=== PATIENT | female | born 1960 | race Caucasian/White ===

== ENCOUNTER 2023-12-08 09:57 | Emergency (ER) | payer OTHER, SELFPAY ==
--- NOTE | ~2023-12-08 | XR_ITS ---
XR knee LT min 4V DATE: 12/08/2023 10:18 INDICATION: Fall forward on the. Proximal anterior knee pain. TECHNIQUE: [employer], AP, bilateral oblique and crosstable lateral views COMPARISON: None FINDINGS: Very prominent distention of the suprapatellar bursa consistent with large knee joint effus ion. There is osteopenia. No fracture or dislocation, periosteal reaction or bone destruction, radiopaque intra-articular loose body or chondrocalcinosis is detected. Knee joint spaces are relatively preserved. IMPRESSION: Large suprapatellar knee joint effusion; no fracture or dislocation is detected Osteopenia Reviewed, dictated and finalized at location A. [employer]
[2023-12-08 10:05] VITALS: BP 158/88; PULSE 108; RESP 16; TEMP 36.7; O2SAT 98
[2023-12-08 10:22] VITALS: BP 158/88; PULSE 108; RESP 16; TEMP 36.7; O2SAT 98
--- NOTE | 2023-12-08 10:38 | ED.LOWEXIN ---
HPI - Extremity Injury (Lower) General Chief Complaint: Extremity Injury, Lower Stated Complaint: Fall Injury/Left Knee History of Present Illness HPI Narrative: Patient presents with left knee swelling. Patient states she tripped over a small fence 2 days ago and has been icing and elevating the knee. Related Data Home Medications Medication Instructions Recorded Confirmed No Home Medications 12/08/23 12/08/23 Allergies Allergy/AdvReac Type Severity Reaction Status Date / Time No Known Allergies Allergy Verified 12/08/23 10:01 Review of Systems Review of Systems: CONSTITUTIONAL: Denies fever, chills, or sweats. EYES: Denies visual changes, redness, or discharge. ENT: Denies rhinorrhea, congestion, sore throat, or otalgia. CARDIOVASCULAR: Denies chest pain, palpitations, or edema. RESPIRATORY: Denies cough or dyspnea. GASTROINTESTINAL: Denies abdominal pain, nausea, vomiting, or diarrhea. GENITOURINARY: Denies dysuria or hematuria. SKIN: Denies rash or itching. MUSCULOSKELETAL: Denies back pain, joint pain, or myalgia. Left knee pain and swelling NEUROLOGIC: Denies headache, numbness, or weakness. PSYCHIATRIC: Denies anxiety or depression. PMFSH Comments At time of signature, agree with nursing past medical, surgical, social and family history. There is no relevant family history pertinent to the presenting complaint Exam Narrative: GENERAL: Well-appearing, well-nourished, and in no acute distress. HEAD: Normocephalic, atraumatic. EYES: PERRLA and EOMI. ENT: Nares clear, no rhinorrhea or epistaxis. Mucous membranes moist. NECK: Supple. CHEST: Clear to auscultation. No respiratory distress. HEART: Regular rate and rhythm. No murmur heard. Normal peripheral pulses. ABDOMEN: Soft, nontender, nondistended, normal active bowel sounds. EXTREMITIES: Normal range of motion. No edema. left knee HIP EXAM - SKIN INTACT. NO BRUISING, REDNESS . slight swelling to left knee. NO INGUINAL MASSES OR LYMPHADENOPATHY. NO INGUINAL TENDERNESS, ANTERIOR OR LATERAL HIP TENDERNESS. NO BUTTOCK OR SI JOINT TENDERNESS. HAS NORMAL FLEXION, EXTENSION, AND ROTATION OF HIP BACK EXAM - NO VERTEBRAL POINT SPECIFIC TENDERNESS OR STEP OFFS. NORMAL ROM OF BACK. NORMAL FLEXION AND EXTENSION OF BACK. NO CVA TENDERNESS. LEG EXAM - NO CALF OR ANKLE SWELLING, DISCOLORATION. NORMAL FOOT SENSATION AND CAP REFILL. NORMAL DP PULSE. SKIN: Warm, dry, no rash. NEURO: No focal deficits. Alert and oriented x3. Leandro Coma Scale Eye Opening: Spontaneous 4 Leandro Coma Scale Motor: Obeys Commands 6 [place] Coma Scale Verbal: Oriented 5 Leandro Coma Scale Total 15 Course Course Level of Care: Express Care Visit Vital Signs Vital signs: Vital Signs Temperature 36.7 C 12/08/23 10:05 Pulse Rate 108 H 12/08/23 10:05 Respiratory Rate 16 12/08/23 10:05 Blood Pressure 158/88 H 12/08/23 10:05 Pulse Oximetry 98 12/08/23 10:05 Oxygen Delivery Room Air 12/08/23 10:05 Temperature 36.7 C 12/08/23 10:22 Pulse Rate 108 H 12/08/23 10:22 Respiratory Rate 16 12/08/23 10:22 Blood Pressure 158/88 H 12/08/23 10:22 Pulse Oximetry 98 12/08/23 10:22 Oxygen Delivery Room Air 12/08/23 10:22 Please EUGENE schedule a followup visit with your personal physician for further evaluation and treatment. Including recheck and discussion of your blood pressure. If your symptoms persist, change or worsen significantly before you can contact your personal physician then please, without delay, go to the emergency department for further evaluation MDM - Extremity Injury (Lower) Imaging Data Radiologist's impression: effusion left knee Discharge Plan Discharge Clinical Impression: Effusion of knee joint, Knee contusion Patient Disposition: Home, Self-Care Condition: Stable Instructions: Swollen Knee Joint (ED) Additional Instructions: Ice to the area 20-30 minutes 4-6 times a day Elevate above heart Elastic wrap
== END 2023-12-08 10:55 | disposition home or self-care (01) ==
PROVIDERS: Emergency Provider Nurse Practitioner Family
DX: S80.02XA Contusion of left knee, initial encounter (principal); M25.462 Effusion, left knee; W01.0XXA Fall on same level from slipping, tripping and stumbling without subsequent striking against object, initial encounter
CPT/HCPCS: 73564; 99213; G0463